=== PATIENT | female | born 1945 | race Caucasian/White ===

== ENCOUNTER 2021-04-28 14:30 | Inpatient (IN) | payer MEDICARE, OTHER ==
[~2021-04-28] VITALS: Ht 165.1 cm; Wt 60.9 kg
[2021-04-28 15:39] LABS: HEMOGLOBIN 17.8 gm/dl (12.3-15.3); RED BLOOD COUNT 5.41 M/UL (4.00-5.10); WHITE BLOOD COUNT 13.8 K/UL (4.5-11.0)
[2021-04-28 16:14] LABS: BUN/CREATININE RATIO 24 (0-10)
--- NOTE | 2021-04-28 22:54 | NUR ---
DURING ADMISSION ASSESSMENT PT WAS NOTED TO BE POOR HISTORIAN. SHE DID NOT KNOW ANY OF THE NAMES OR DOSAGES OF HER MEDICATIONS. SHE STATED THE STAFF AT HER FACILITY HELPED WITH IT. NO INFORMATION WAS SENT WITH HER FROM THE FACILITY. I COULD NOT FIND A NUMBER ONLINE TO CALL THE FACILITY AND ATTEMPT TO GET HER INFORMATION. SHE DID NOT KNOW WHAT PHARMACY SHE USED FOR ME TO CALL AND GET INFO. WILL PASS ON TO [employer] TO INVESTIGATE FURTHER.
--- NOTE | 2021-04-28 23:34 | NUR ---
ADDITIONS TO ADMISSION SKIN ASSESSMENT: -BILATERAL EYES: BLANCHABLE REDNESS, CLOSED, LEFT CRUZ -BILATERAL HEELS: RED, BLANCHABLE, CLOSED. LEFT CRUZ, FLOATED ON PILLOWS, PT REFUSES TO HAVE ANYTHING ON FEET SO PROTECTORS NOT APPLIED. 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
[2021-04-29 06:52] LABS: WHITE BLOOD COUNT 14.6 K/UL (4.5-11.0)
[2021-04-29 07:28] LABS: HEMOGLOBIN 15.5 gm/dl (12.3-15.3); RED BLOOD COUNT 4.8 M/UL (4.00-5.10)
[2021-04-29 08:41] LABS: BUN/CREATININE RATIO 33 (0-10)
[2021-04-29] MEDS ORDERED: ASPIRIN81 MG PO (13:16)
[2021-04-29] MEDS ORDERED: PROAIR HFA8.5 GM INH (13:16)
[2021-04-29] MEDS ORDERED: POTASSIUM CHLO10 MEQ PO (13:17)
[2021-04-29] MEDS ORDERED: TRAMADOL HCL50 MG PO (13:17)
[2021-04-29] MEDS ORDERED: LOSARTAN-HCTZ1 EAC2 PO (13:18)
[2021-04-29] MEDS ORDERED: LIPITOR TAB 1010 MG PO (13:18)
[2021-04-29] MEDS ORDERED: FAMOTIDINE20 MG PO (13:18)
[2021-04-29] MEDS ORDERED: BUSPIRONE HCL7.5 MG PO (13:18)
[2021-04-29] MEDS ORDERED: PAROXETINE HCL30 MG PO (13:19)
[2021-04-29] MEDS ORDERED: MONTELUKAST SOD10 MG PO (13:19)
[2021-04-29] MEDS ORDERED: IPRAT-ALBUT 0.5-3 ML INH (13:20)
[2021-04-29] MEDS ORDERED: DULERA 100 MCG8.8 GM INH (13:20)
[2021-04-29] MEDS ORDERED: COMBIVENT RESPIM4 GM INH (13:21)
[2021-04-30 07:12] LABS: HEMOGLOBIN 14.5 gm/dl (12.3-15.3); RED BLOOD COUNT 4.46 M/UL (4.00-5.10); WHITE BLOOD COUNT 11.7 K/UL (4.5-11.0)
[2021-04-30 07:44] LABS: BUN/CREATININE RATIO 25 (0-10)
[2021-04-30] MEDS ORDERED: TEMAZEPAM30 MG PO (18:37)
[2021-05-01 06:05] LABS: HEMOGLOBIN 13.9 gm/dl (12.3-15.3); RED BLOOD COUNT 4.27 M/UL (4.00-5.10)
[2021-05-01 06:13] LABS: WHITE BLOOD COUNT 8.4 K/UL (4.5-11.0)
[2021-05-01 07:12] LABS: BUN/CREATININE RATIO 18 (0-10)
[2021-05-02 06:48] LABS: HEMOGLOBIN 12.6 gm/dl (12.3-15.3); RED BLOOD COUNT 3.93 M/UL (4.00-5.10); WHITE BLOOD COUNT 8.2 K/UL (4.5-11.0)
[2021-05-02 07:24] LABS: BUN/CREATININE RATIO 19 (0-10)
[2021-05-03 06:58] LABS: HEMOGLOBIN 12.9 gm/dl (12.3-15.3); RED BLOOD COUNT 4.08 M/UL (4.00-5.10)
[2021-05-03 07:21] LABS: BUN/CREATININE RATIO 17 (0-10)
--- NOTE | 2021-05-03 08:03 | NUR ---
PT REFUSED STRESS TEST THIS AM.
[2021-05-04 06:34] LABS: HEMOGLOBIN 13.5 gm/dl (12.3-15.3); RED BLOOD COUNT 4.17 M/UL (4.00-5.10)
[2021-05-04 06:44] LABS: BUN/CREATININE RATIO 16 (0-10)
--- NOTE | 2021-05-05 | NUR ---
PT NONCOMPLIANT WITH BEING NPO AFTER 0000. PT CONTINUED TO EAT SNACKS ON HER BEDSIDE TABLE. PT STATED THAT SHE DOES NOT WANT TO DO A STRESS TEST THIS AM, BECAUSE SHE DOES NOT HAVE A GOOD FEELING ABOUT IT.
[2021-05-05 04:40] LABS: HEMOGLOBIN 12.8 gm/dl (12.3-15.3); RED BLOOD COUNT 3.98 M/UL (4.00-5.10); WHITE BLOOD COUNT 8.6 K/UL (4.5-11.0)
[2021-05-05 05:23] LABS: BUN/CREATININE RATIO 18 (0-10)
[2021-05-06 06:50] LABS: BUN/CREATININE RATIO 19 (0-10)
[2021-05-07 07:16] LABS: BUN/CREATININE RATIO 17 (0-10)
[2021-05-08 06:44] LABS: BUN/CREATININE RATIO 20 (0-10)
[2021-05-08] MEDS ORDERED: NYSTOP60 GM TOP (09:17)
[2021-05-08] MEDS ORDERED: MUPIROCIN22 GM TOP (09:17)
[2021-05-08] MEDS ORDERED: LISINOPRIL5 MG PO (09:17)
[2021-05-08] MEDS ORDERED: LOPRESSOR 25 MG25 MG PO (09:17)
[2021-05-08] MEDS ORDERED: ELIQUIS 2.5 MG2.5 MG PO (09:17)
[2021-05-08] MEDS ORDERED: TOPROL XL 50 MG50 MG PO (11:03)
[2021-05-08] MEDS ORDERED: LASIX20 MG PO (11:20)
== END 2021-05-08 15:40 | disposition home health service (06) | DRG 564 ==
LOC: ER1 14:30 → MED SURG 4 17:14 → CDU 17:14 → MED SURG 4 21:16
PROVIDERS: Family Medicine; Internal Medicine; Physician Assistant; ADMIT Internal Medicine
PROC: B24BZZ4 Ultrasonography of Heart with Aorta, Transesophageal (ICD-10-PCS; principal; 2021-04-29)
PROC: 4A023N7 Measurement of Cardiac Sampling and Pressure, Left Heart, Percutaneous Approach (ICD-10-PCS; 2021-05-07)
PROC: B2111ZZ Fluoroscopy of Multiple Coronary Arteries using Low Osmolar Contrast (ICD-10-PCS; 2021-05-07)
DX: T79.6XXA Traumatic ischemia of muscle, initial encounter (principal); A41.89 Other specified sepsis; Z20.822 Contact with and (suspected) exposure to COVID-19; G93.41 Metabolic encephalopathy; I42.8 Other cardiomyopathies; M48.56XA Collapsed vertebra, not elsewhere classified, lumbar region, initial encounter for fracture; I50.22 Chronic systolic (congestive) heart failure; I48.91 Unspecified atrial fibrillation; M19.90 Unspecified osteoarthritis, unspecified site; E78.5 Hyperlipidemia, unspecified; R29.6 Repeated falls; M50.30 Other cervical disc degeneration, unspecified cervical region; M43.8X4 Other specified deforming dorsopathies, thoracic region; E11.9 Type 2 diabetes mellitus without complications; J45.909 Unspecified asthma, uncomplicated; Z96.653 Presence of artificial knee joint, bilateral; E86.0 Dehydration; S80.212A Abrasion, left knee, initial encounter; S80.211A Abrasion, right knee, initial encounter; I08.3 Combined rheumatic disorders of mitral, aortic and tricuspid valves; I11.0 Hypertensive heart disease with heart failure; I27.20 Pulmonary hypertension, unspecified; S50.311A Abrasion of right elbow, initial encounter; Z96.643 Presence of artificial hip joint, bilateral; E87.6 Hypokalemia; R19.7 Diarrhea, unspecified; G47.00 Insomnia, unspecified; I49.3 Ventricular premature depolarization; M47.892 Other spondylosis, cervical region; Z96.611 Presence of right artificial shoulder joint; I45.81 Long QT syndrome; W18.30XA Fall on same level, unspecified, initial encounter; Y92.009 Unspecified place in unspecified non-institutional (private) residence as the place of occurrence of the external cause; Z79.01 Long term (current) use of anticoagulants; Z79.82 Long term (current) use of aspirin; Z90.49 Acquired absence of other specified parts of digestive tract; Z88.0 Allergy status to penicillin; Z82.49 Family history of ischemic heart disease and other diseases of the circulatory system; Z83.3 Family history of diabetes mellitus; Z79.4 Long term (current) use of insulin
CPT/HCPCS: ECHO; 36415; 70450; 71250; 72125; 73030; 73502; 73562; 78452; 80048; 80053; 80307; 81001; 82550; 82553; 83605; 83735; 83874; 84132; 84439; 84443; 84484; 85025; 85027; 85610; 85652; 86140; 87040; 87449; 90471; 90714; 93005; 93017; 93306; 93880; 94640; 94664; 94760; 97110-GP-CQ; 97116; 97161; 97530-GP-CQ; 99152; 99153; 99285; A6212; A9502; C1769; C1887; C1894; J0692; J1644; J1650; J1940; J2785; J3010; J3475; J7030; J7040; Q9965; U0002